=== PATIENT | female | born 1955 | race Caucasian/White ===

== ENCOUNTER 2018-03-14 17:07 | Inpatient (IN) | payer MEDICAID ==
[~2018-03-14] VITALS: Ht 167.6 cm; Wt 56.7 kg
[2018-03-14 17:30] LABS: BASOPHIL % 0.5 % (0-2)
[2018-03-14 17:33] LABS: PLATELET COUNT 120 x10^3mcL (130-400); RED CELL DISTRIBUTION WIDTH 15.1 % (11.5-14.5)
[2018-03-14 17:37] LABS: CALCIUM 8.8 mg/dL (8.5-10.1); CARBON DIOXIDE 22.8 mmol/L (21-32); CREATININE SERUM 1.2 mg/dL (0.6-1.0); POTASSIUM SERUM 4.3 mmol/L (3.5-5.1)
[2018-03-14 17:41] LABS: BILIRUBIN TOTAL 1.44 mg/dL (0.20-1.00); TOTAL PROTEIN, SERUM 7.5 g/dL (6.4-8.2)
[2018-03-14 17:45] LABS: ALBUMIN 2.5 g/dL (3.4-5.0)
[2018-03-14] MEDS ORDERED: LANTUS SOLOS100 U/M1 SQ (20:24)
[2018-03-14] MEDS ORDERED: LASIX20 MG PO (20:24)
[2018-03-14] MEDS ORDERED: PROZAC20 MG PO (20:25)
[2018-03-14] MEDS ORDERED: NATURE'S BLEND F1 MG PO (20:26)
[2018-03-14] MEDS ORDERED: GOOD SENSE OMEP20 MG PO (20:26)
[2018-03-14] MEDS ORDERED: FERROUS SULFAT325 M2 PO (20:27)
[2018-03-14] MEDS ORDERED: PROPRANOLOL HCL10 MG PO (20:27)
[2018-03-14] MEDS ORDERED: ALDACTONE25 MG PO (20:28)
[2018-03-14] MEDS ORDERED: LACTULOSE10 GM/152 (20:34)
[2018-03-14 20:42] LABS: PHOSPHOROUS 2.6 mg/dL (2.5-4.9)
[2018-03-14 20:43] LABS: CHOLESTEROL/HDL RATIO 2.4
[2018-03-14 20:49] LABS: UA SPECIFIC GRAVITY 1.015 (1.005-1.035); microscopic required? YES; urine erythrocyte NEGATIVE (NEGATIVE)
[2018-03-14 21:03] LABS: AMPHETAMINE QUAL UR NONE DETECTED (See below)
[2018-03-15 00:52] VITALS: BP 149/62
[2018-03-15 05:26] VITALS: Ht 167.6 cm; Wt 56.7 kg
[2018-03-15 05:38] VITALS: BP 141/63
[2018-03-15 07:01] LABS: BILIRUBIN TOTAL 1.5 mg/dL (0.20-1.00); CALCIUM 8.3 mg/dL (8.5-10.1); CARBON DIOXIDE 19.5 mmol/L (21-32); MAGNESIUM 1.6 mg/dL (1.8-2.4); PHOSPHOROUS 2.9 mg/dL (2.5-4.9); POTASSIUM SERUM 4.5 mmol/L (3.5-5.1); TOTAL PROTEIN, SERUM 6.6 g/dL (6.4-8.2)
[2018-03-15 07:03] LABS: ALBUMIN 2.2 g/dL (3.4-5.0)
[2018-03-15 07:26] LABS: BASOPHIL % 0.4 % (0-2)
[2018-03-15 07:27] LABS: PLATELET COUNT 105 x10^3mcL (130-400)
[2018-03-15 09:38] VITALS: BP 123/42
[2018-03-15 13:42] VITALS: BP 119/47
[2018-03-15 17:15] VITALS: BP 124/43
[2018-03-15 21:38] VITALS: BP 119/47
[2018-03-16 05:52] VITALS: BP 120/53
[2018-03-16 06:55] LABS: BASOPHIL % 0.6 % (0-2)
[2018-03-16 07:00] LABS: PLATELET COUNT 89 x10^3mcL (130-400); RED CELL DISTRIBUTION WIDTH 15.5 % (11.5-14.5)
[2018-03-16 07:03] LABS: CALCIUM 8.3 mg/dL (8.5-10.1); CARBON DIOXIDE 19.4 mmol/L (21-32); MAGNESIUM 1.8 mg/dL (1.8-2.4); POTASSIUM SERUM 5.1 mmol/L (3.5-5.1)
[2018-03-16 09:29] VITALS: BP 117/47
[2018-03-16 16:56] VITALS: BP 99/45
[2018-03-16 21:38] VITALS: BP 118/48
[2018-03-17 06:29] LABS: CALCIUM 8.1 mg/dL (8.5-10.1); CARBON DIOXIDE 22.3 mmol/L (21-32); CHLORIDE SERUM 104 mmol/L (98-107); CREATININE SERUM 0.9 mg/dL (0.6-1.0); GFR1 > 60 mL/min; GLUCOSE SERUM 177 mg/dL (74-106); POTASSIUM SERUM 4.6 mmol/L (3.5-5.1); SODIUM SERUM 134 mmol/L (136-145)
[2018-03-17 07:04] LABS: BASOPHIL % 0.8 % (0-2); PLATELET COUNT 82 x10^3mcL (130-400); RED CELL DISTRIBUTION WIDTH 16.5 % (11.5-14.5)
[2018-03-17 10:38] VITALS: BP 102/38
[2018-03-17 17:00] VITALS: BP 114/47
[2018-03-17 20:22] VITALS: BP 124/50
[2018-03-18 04:57] VITALS: BP 120/49
[2018-03-18 08:45] VITALS: BP 104/43
[2018-03-18] MEDS ORDERED: ACT300 PO (08:54)
[2018-03-18] MEDS ORDERED: LAC15L PO (08:54)
[2018-03-18] MEDS ORDERED: KEFLEX500 M1 PO (08:59)
[2018-03-18 10:08] VITALS: BP 104/43
== END 2018-03-18 13:30 | disposition home or self-care (01) | DRG 279 ==
LOC: ED 17:07 → MU 20:08
PROVIDERS: Emergency Medicine; Family Medicine; ADMIT Internal Medicine
DX: K72.90 Hepatic failure, unspecified without coma (principal); G93.41 Metabolic encephalopathy; E43 Unspecified severe protein-calorie malnutrition; D61.818 Other pancytopenia; K74.3 Primary biliary cirrhosis; J43.9 Emphysema, unspecified; E11.9 Type 2 diabetes mellitus without complications; D64.9 Anemia, unspecified; F32.9 Major depressive disorder, single episode, unspecified; N39.0 Urinary tract infection, site not specified; I10 Essential (primary) hypertension; K80.20 Calculus of gallbladder without cholecystitis without obstruction; Z79.4 Long term (current) use of insulin; Z68.20 Body mass index [BMI] 20.0-20.9, adult
CPT/HCPCS: 82962; 83880; 97112-GP; 97116-GP; 97530-GP; G0480; J0696; J1940; J7030; J7040; Q0092